=== PATIENT | female | born 1960 | race Two or more races ===

== ENCOUNTER 2025-06-10 18:00 | Emergency (ER) | payer OTHER, MEDICAID ==
[~2025-06-10] VITALS: Ht 160 cm; Wt 57.7 kg
[2025-06-10 18:06] VITALS: TEMP 97.2
--- NOTE | 2025-06-10 18:53 | DVH ---
CLINICAL INDICATION: right hip pain TECHNIQUE: 2 radiographic views of the right hip were obtained. Comparison: None FINDINGS/IMPRESSION: There are no fractures or dislocations. Bony alignment appears normal
--- NOTE | 2025-06-10 18:56 | DVH ---
CLINICAL INDICATION: right shoulder pain TECHNIQUE: 3 radiographic views of the right shoulder were obtained. Comparison: None FINDINGS/IMPRESSION: Small flake of calcification in the soft tissues adjacent to the greater tuberosity of the proximal right humerus. Findings may represent calcified tendinitis or may be secondary to prior injury.
[2025-06-10] MEDS ORDERED: ACET500T58 PO (20:30)
--- NOTE | 2025-06-10 20:30 | ED.PDOC ---
Musculoskeletal HPI Comments 65-year-old female presents to ER with complaints of fall injury x1 day. Patient reports she started experiencing 10/10 right shoulder pain and right hip pain S/P approximately 3 ft high fall off her bed and landing onto her right side onto cement last night. Denies head injury/LOC and denies any other reported injuries. Denies use of medications for current symptoms and presents to ER ambulatory on arrival, with steady gait, in no distress. 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 History Family History Family History: Unknown Social History Smoker: Non-Smoker Alcohol: Denies ETOH Use Drugs: Denies Drug Use Lives In: Home Constitutional: denies: chills, diaphoresis, fatigue, fever, malaise, sweats, weakness, others EENTM: denies: blurred vision, double vision, ear bleeding, ear discharge, ear drainage, ear pain, ear ringing, eye pain, eye redness, hearing loss, mouth pain, mouth swelling, nasal discharge, nose bleeding, nose congestion, nose pain, photophobia, tearing, throat pain, throat swelling, voice changes, others Respiratory: denies: cough, hemoptysis, orthopnea, SOB at rest, shortness of breath, SOB with excertion, stridor, wheezing, others Cardiovascular: denies: chest pain, dizzy spells, diaphoresis, Dyspnea on exertion, edema, irregular heart beat, left arm pain, lightheadedness, palpitations, PND, syncope, others Gastrointestinal: denies: abdomen distended, abdominal pain, blood streaked bowels, constipated, diarrhea, dysphagia, difficulty swallowing, hematemesis, melena, nausea, poor appetite, poor fluid intake, rectal bleeding, rectal pain, vomiting, others Genitourinary: denies: abnormal vagina bleeding, burning, dyspareunia, dysuria, flank pain, frequency, hematuria, incontinence, pain, , vagina discharge, urgency, others Neurological: denies: dizziness, fainting, headache, left sided numbness, left sided weakness, numbness, paresthesia, pre-existing deficit, right sided numbness, right sided weakness, seizure, speech problems, tingling, tremors, w eakness, others Musculoskeletal: reports: others (As stated in HPI) Integumetry: denies: bruises, change in color, change in hair/nails, dryness, laceration, lesions, lumps, rash, wounds, others Allergic/Immunocompromised: denies: Difficulty Healing, Frequent Infections, Hives, Itching, others Hematologic/Lymphatic: denies: anemia, blood clots, easy bleeding, easy bruising, swollen glands, others Endocrine: denies: excessive hunger, excessive sweating, excessive thirst, excessive urination, flushing, intolerance to cold, intolerance to heat, unexplained weight gain, unexplained weight loss, others Psychiatric: denies: anxiety, bipolar disorder, depression, hopeless, panic disorder, schizophrenia, sleepless, suicidal, others Physical Exam General Appearance: No Apparent Distress HEENT: Normal ENT Inspection, PERRL/EOMI, Pharynx Normal, TMs Normal Neck: Full Range of Motion, Non-Tender, Normal Respiratory: Chest Non-Tender, Lungs Clear, No Accessory Muscle Use, No Respiratory Distress, Normal Breath Sounds Cardiovascular: No Murmur, No Gallop, Regular Rate/Rhythm Breast Exam: Deferred Gastrointestinal: NOT DONE Genitalia: Deferred Pelvic: Deferred Rectal: Deferred Extremities: Normal capillary refill, Normal range of motion Musculoskeletal : Extremity Location: Hip (Slight TTP to right hip noted. No internal rotation/shortening to bilateral lower extremities noted. Pulses intact. Steady gait noted), Shoulder (TTP to right proximal humerus noted. No deformity/skin changes noted. Patient able to fully move right shoulder. No other TTP to right upper extremity noted. Pulses intact) Neurologic: Alert, No Motor Deficits, Normal Affect, Normal Mood, No Sensory Deficits Cerebellar Function: Normal Reflexes: Normal Skin: Dry, Normal Color, Warm Peripheral Pulses: 2+ carotid (R), 2+ carotid (L), 2+ femoral (R), 2+ femoral (L), 2+ dorsalis pedis (R), 2+ dorsalis pedis (L), 2+ Radial (R), 2+ Radial (L), 2+ Brachial (R), 2+ Brachial (L) Lymphatic: No Adenopathy Was a procedure done? Was a procedure done?: No Sedation Sedation?: No Differential Diagnosis EXT Differential Diagnosis: Fracture, Dislocation, Neurovascular injury X-Ray, Labs, Meds, VS Vital Signs Date Time Temp Pulse Resp B/P (MAP) Pulse Ox O2 Delivery O2 Flow Rate FiO2 06/10/25 18:06 97.2 82 18 114/85 94 97.2 Current Medications Medications (Trade) Dose Ordered Sig/Jenise Route Start Time Stop Time Status Last Admin Acetaminophen (Tylenol Tablet) 650 mg ONCE ONCE PO 06/10/25 20:30 06/10/25 20:31 DC 06/10/25 20:43 PATIENT: MARICARMEN DE ANDAACCT: [id number]: [id number] : 1960 LOC: ER ROOM / BED: / AGE / SEX: 65 / F ADM STATUS: REG ER SERVICE 18 ORDERING PHYSICIAN: RHONDA DURAN PROCEDURE(s): RSHD2 - R SHOULDER 2+ VIEW XRAY REASON: right shoulder pain ORDER NUMBER(s): [id number], ACCESSION NUMBER(s): [id number] CLINICAL INDICATION: right shoulder pain TECHNIQUE: 3 radiographic views of the right shoulder were obtained. Comparison: None FINDINGS/IMPRESSION: Small flake of calcification in the soft tissues adjacent to the greater tuberosity of the proximal right humerus. Findings may represent calcified tendinitis or may be secondary to prior injury. ATED BY: TERRI RAY Jr., DO DICTATED DATE/TIME: 06/10/251853 SIGNED BY: TERRI RAY Jr., SIGNED DATE/TIME: 06/10/251853 CC: PATIENT: MARICARMEN DE ANDA ACCT: [id number] UNIT: [id number] : 1960 LOC: ER ROOM / BED: / AGE / SEX: 65 / F ADM STATUS: REG ER SERVICE 18 ORDERING PHYSICIAN: RHONDA DURAN PROCEDURE(s): RHIP - R HIP COMPLETE XRAY REASON: right hip pain ORDER NUMBER(s): [id number], ACCESSION NUMBER(s): [id number] CLINICAL INDICATION: right hip pain TECHNIQUE: 2 radiographic views of the right hip were obtained. Comparison: None FINDINGS/IMPRESSION: There are no fractures or dislocations. Bony alignment appears normal ATED BY: TERRI RAY Jr., DO DICTATED DATE/TIME: 06/10/251850 SIGNED BY: TERRI RAY Jr., SIGNED DATE/TIME: 06/10/251850 CC: Tylenol 650 mg p.o. ordered Right hip x-ray reviewed Right shoulder x-ray reviewed Advised on elevation and alternate ice on/off as needed for pain Advised to follow up with PCP in 1-2 days Patient verbalized understanding and agreeable with current plan of care Advised to return to ER immediately if symptoms worsen Images Reviewed?: Images reviewed and evaluated by me Time of 1ST Reevaluation: 20:12 Reevaluation 1ST: N/A Patient Education/Counseling: Diagnosis, Treatment, Prognosis, Need For Follow Up Family Education/Counseling: Diagnosis, Treatment, Prognosis, Need For Follow Up Departure 1 Departure Time of Disposition: 20:28 Impression: Primary Impression: Contusion of shoulder, right Qualified Codes: S40.011A - Contusion of right shoulder, initial encounter Additional Impressions: Contusion of hip, right Qualified Codes: S70.01XA - Contusion of right hip, initial encounter Tendonitis of shoulder, right Disposition: 01 HOME / SELF CARE / HOMELESS Condition: Stable e-Prescriptions Acetaminophen (Acetaminophen) 500 Mg Tab 500 MG PO Q4HPRN, #30 TAB 0 Refills Prov: RHONDA DURAN 06/10/25 Discharged With: Self Critical Care Note Critical Care Time?: No Stability Stability form required: No Heart Score Heart Score: Heart Score Response (Comments) Value History N/A 0 EKG N/A 0 Age N/A 0 Risk Factors N/A 0 Troponin N/A 0 Total 0 RHONDA DURAN Jun 10, 2025 20:30
[2025-06-10] MEDS: ACETAMINOPHEN 325 MG TAB PO ONE (20:43)
[2025-06-10 20:51] VITALS: BP 111/45; PULSE 82; RESP 18; O2SAT 96
== END 2025-06-10 21:00 | disposition home or self-care (01) ==
LOC: ER 18:00
DX: S40.011A Contusion of right shoulder, initial encounter (principal); S70.01XA Contusion of right hip, initial encounter; J44.9 Chronic obstructive pulmonary disease, unspecified; Z88.0 Allergy status to penicillin; Z98.890 Other specified postprocedural states; W18.39XA Other fall on same level, initial encounter; Y93.89 Activity, other specified; Y92.89 Other specified places as the place of occurrence of the external cause; Y99.8 Other external cause status
CPT/HCPCS: 73030; 73502